=== PATIENT | male | born 1950 | race Caucasian/White ===

== ENCOUNTER 2023-05-12 01:51 | Day surgery (SDC) | payer MEDICARE, SELFPAY ==
[2023-05-02 13:49] VITALS: BMI 30.2
[2023-05-12 06:45] VITALS: BP 138/78; PULSE 66; RESP 18; TEMP 35.9; O2SAT 98; BMI 31.6
[2023-05-12] MEDS: LACTATED RINGERS 1,000 ML 150 ML IV CONT (07:01)
--- NOTE | 2023-05-12 07:50 | WPDHPUPDATE1 ---
History and Physical Update Update Date/Time: 05/12/23 07:50 History and Physical has been reviewed, including an updated exam of the patient. There are NO changes in the patient's condition. Risks, benefits, and alternatives have been discussed and questions answered. Patient agrees to proceed with procedure.
[2023-05-12 08:19] VITALS: BP 114/76; PULSE 66; RESP 18; O2SAT 97
[2023-05-12 08:29] VITALS: BP 123/87; PULSE 60; RESP 18; O2SAT 98
[2023-05-12 08:39] VITALS: BP 137/89; PULSE 60; RESP 18; O2SAT 100
== END 2023-05-12 08:48 | disposition home or self-care (01) ==
PROVIDERS: PCP Family Medicine; Visit Provider Internal Medicine Gastroenterology
PROC: 0DJ08ZZ Inspection of Upper Intestinal Tract, Via Natural or Artificial Opening Endoscopic (ICD-10-PCS; CPT 43235; principal; 2023-05-12 08:00)
DX: K29.50 Unspecified chronic gastritis without bleeding (principal); I10 Essential (primary) hypertension; K21.9 Gastro-esophageal reflux disease without esophagitis
CPT/HCPCS: 43239; 87081; 88305; J2704; J7120

== ENCOUNTER 2023-06-01 08:16 | Outpatient (CLI) | payer MEDICARE, SELFPAY ==
--- NOTE | ~2023-06-01 | CT_ITS ---
EXAMINATION: CTA abdomen DATE: 06/01/2023 08:57 INDICATION: Epigastric abdominal pain. TECHNIQUE: Computed tomographic angiography (CTA) of the abdomen was performed with 100 mL Omnipaque- 350 intravenous contrast. Automated exposure control and iterative reconstruction technique were empl oyed. The dose-length product was 636.55 mGy-cm. Maximum intensity projection 3D-reconstructions of t he aorta and other arteries were constructed by the technologist on a separate workstation. COMPARISON: None. FINDINGS: The visualized portions of the lung bases demonstrate mild atelectasis. No pleural effusion . The heart size is normal. No pericardial effusion. The liver, gallbladder, spleen, pancreas, and ad renal glands are normal. There are cysts in right kidney measuring up to 3.2 cm. There is mild atroph y of left kidney. There are no dilated loops of bowel. There is diverticulosis of the colon without e vidence of diverticulitis. The appendix is normal. There are no pathologically enlarged lymph nodes. There is no free intraperitoneal fluid. There is calcified atherosclerosis of the aorta and many of t he other arteries. 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 There is no significant stenosis of sup erior mesenteric artery. There is moderate stenosis of right renal artery. There is severe stenosis o f left renal artery. There is no significant stenosis of inferior mesenteric artery. There is mild th oracic spondylosis and moderate lumbar spondylosis. There is mild chronic anterior wedging of multipl e vertebral bodies. IMPRESSION: 1. Moderate stenosis of celiac axis. No significant stenosis of superior mesenteric artery or inferio r mesenteric artery. 2. 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 Mild atrophy of left kidney. Reviewed, dictated and finalized at location A. PAPER REPORTER IMPRESSION: 1. Moderate stenosis of celiac axis. No significant stenosis of superior mesent colt artery or inferior mesenteric artery. 2. 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 Mild atrophy of left kidney.
[2023-06-01 08:51] LABS: Estimated Glomerular Filt Rate 46
== END 2023-06-01 08:17 | disposition home or self-care (01) ==
PROVIDERS: PCP Family Medicine; Visit Provider Internal Medicine Gastroenterology
DX: R10.13 Epigastric pain (principal); I77.1 Stricture of artery
CPT/HCPCS: 74175; Q9967